=== PATIENT | male | born 1955 | race Caucasian/White ===

== ENCOUNTER → 2020-06-21 | Outpatient (CLI) | payer OTHER ==
[~2020-06-21] MED LIST: APIX5TAB PO; LISI5TAB7 PO; METO-93 PO; METO-95 PO; SPIR25TA PO
== END | disposition home or self-care (01) ==
LOC: CVU 07:45
PROVIDERS: ATTEND Internal Medicine Cardiovascular Disease
DX: I08.8 Other rheumatic multiple valve diseases (principal); I48.91 Unspecified atrial fibrillation; I10 Essential (primary) hypertension; I42.9 Cardiomyopathy, unspecified; F17.210 Nicotine dependence, cigarettes, uncomplicated
CPT/HCPCS: 93306

== ENCOUNTER → 2020-09-06 | Outpatient (CLI) | payer OTHER ==
[~2020-09-06] MED LIST changes: +AMIO200T42 PO; +AMOX1TAB12 PO; +FURO40TA6 PO; +POTA20TA6 PO
== END | disposition home or self-care (01) ==
LOC: CVU 07:44
PROVIDERS: ATTEND Internal Medicine Cardiovascular Disease
DX: I08.8 Other rheumatic multiple valve diseases (principal); I11.9 Hypertensive heart disease without heart failure; I42.9 Cardiomyopathy, unspecified
CPT/HCPCS: 93306

== ENCOUNTER 2021-01-04 09:06 | Observation (INO) | payer OTHER ==
[~2021-01-04] VITALS: Ht 195.6 cm; Wt 118.7 kg
[2021-01-04] MEDS ORDERED: METO25TA91 PO (10:28)
[2021-01-04] MEDS: SODIUM CHLORIDE 0.9% 1,000 ML IV SCH ×2 (10:30→16:53)
[2021-01-04] MEDS ORDERED: FENTANYL PF 100 MCG/2ML ONE ×2 (10:44→12:15)
[2021-01-04] MEDS ORDERED: CEFAZOLIN PMX 1GM/50ML 50 ML ONE (10:44)
[2021-01-04] MEDS ORDERED: LIDOCAINE 1%, 20ML ONE (10:44)
[2021-01-04] MEDS ORDERED: MIDAZOLAM 1 MG/ML, 5ML ONE (10:44)
[2021-01-04] MEDS ORDERED: CEFAZOLIN 1,000 MG ONE (10:45)
[2021-01-04 11:09] LABS: BASOPHILS % (AUTO) 1 % (0-1); EOSINOPHILS % (AUTO) 2 % (1-7); LYMPHOCYTES % (AUTO) 23 % (22-44); MEAN CORPUSCULAR HEMOGLOBIN 33.2 pg (27.5-34.5); MEAN CORPUSCULAR HGB CONC 34.3 g/dL (33.2-36.2); MEAN PLATELET VOLUME 7.9 fL (7.4-10.4); MONOCYTES % (AUTO) 10 % (2-9); NEUTROPHILS % (AUTO) 65 % (42-75); PLATELET COUNT 282 x10^3/uL (130-400); RED BLOOD COUNT 5.15 x10^6/uL (4.38-5.82); RED CELL DISTRIBUTION WIDTH 14.9 % (9.4-14.8)
[2021-01-04 11:10] VITALS: BP 141/81
[2021-01-04 11:10] LABS: MD NO
[2021-01-04 11:13] LABS: ANION GAP 3 mmol/L (5-15); CALCIUM 9.2 mg/dL (8.5-10.1); CHLORIDE 111 mmol/L (98-107); CREATININE 1.87 mg/dL (0.7-1.3)
[2021-01-04] MEDS ORDERED: LIDOCAINE 2%, 20ML ONE (12:14)
[2021-01-04] MEDS ORDERED: MIDAZOLAM 1 MG/ML, 2ML ONE (12:15)
[2021-01-04] MEDS ORDERED: METOPROLOL SUCCINATE 100 MG TAB.ER.24H ONE (12:52)
[2021-01-04] MEDS ORDERED: HYDROcodone/APAP 5/325 TABLET PO PRN (13:00)
[2021-01-04] MEDS ORDERED: HOLD MEDICATION MC PRN (13:00)
[2021-01-04] MEDS ORDERED: METOPROLOL SUCCINATE 25 MG TAB.ER.24H PO SCH (13:00)
[2021-01-04 13:30] VITALS: BP 114/94
[2021-01-04] MEDS: SODIUM CHLORIDE FLUSH 10ML SYR IVF SCH (20:06)
[2021-01-04] MEDS: CEFAZOLIN PMX 1GM/50ML 50 ML IVPB SCH (20:06)
[2021-01-04 20:20] VITALS: BP 151/86
[2021-01-05 01:23] VITALS: BP 149/116
[2021-01-05 03:25] VITALS: BP 157/85
[2021-01-05] MEDS: CEFAZOLIN PMX 1GM/50ML 50 ML IVPB SCH ×2 (04:49→12:27)
[2021-01-05] MEDS ORDERED: ACET325T26 PO (07:48)
[2021-01-05] MEDS ORDERED: LISI5TAB7 PO (07:48)
[2021-01-05 07:50] VITALS: BP 135/96
[2021-01-05] MEDS: SODIUM CHLORIDE FLUSH 10ML SYR IVF SCH (08:02)
[2021-01-05] MEDS ORDERED: POTASSIUM CHLORIDE 20 MEQ TAB.ER.PRT PO SCH (09:00)
[2021-01-05] MEDS ORDERED: SPIRONOLACTONE 25 MG TABLET PO SCH (09:00)
[2021-01-05] MEDS ORDERED: LISINOPRIL 5 MG TABLET PO SCH ×2 (09:00)
[2021-01-05] MEDS ORDERED: METOPROLOL SUCCINATE 100 MG TAB.ER.24H PO SCH (09:00)
[2021-01-05] MEDS ORDERED: FUROSEMIDE 40 MG TABLET PO SCH (09:00)
[2021-01-05] MEDS ORDERED: METOPROLOL SUCCINATE 25 MG TAB.ER.24H PO SCH (09:00)
== END 2021-01-05 14:00 | disposition home or self-care (01) ==
LOC: CACL 09:06 → ORIP 12:37 → 5SO 13:27 → DCLOUNGE 01-05 13:45
PROVIDERS: ADMIT Internal Medicine Cardiovascular Disease; ATTEND Internal Medicine Cardiovascular Disease
DX: I42.8 Other cardiomyopathies (principal); I48.20 Chronic atrial fibrillation, unspecified; I11.0 Hypertensive heart disease with heart failure; I50.9 Heart failure, unspecified; F17.200 Nicotine dependence, unspecified, uncomplicated; Z45.02 Encounter for adjustment and management of automatic implantable cardiac defibrillator; Z79.01 Long term (current) use of anticoagulants; Z79.899 Other long term (current) drug therapy
CPT/HCPCS: 33249; 36415; 71045; 71046; 80048; 85025; 93005; 96365; 96366; 99156; 99157; C1722; C1892; C1895; G0378; J0690; J2250; J3010; J3490

== ENCOUNTER 2021-05-20 14:05 | Outpatient (CLI) | payer OTHER ==
[~2021-05-20 14:05] MED LIST changes: +ACET325T26 PO; +METO25TA91 PO; +POTA-143 PO; -POTA20TA6 PO
== END 2021-05-20 23:59 | disposition home or self-care (01) ==
LOC: CVU 14:05
PROVIDERS: ATTEND Registered Nurse
DX: I08.8 Other rheumatic multiple valve diseases (principal); I11.9 Hypertensive heart disease without heart failure; I48.91 Unspecified atrial fibrillation; I42.9 Cardiomyopathy, unspecified
CPT/HCPCS: 93306